=== PATIENT | female | born 1990 | race Caucasian/White ===

== ENCOUNTER 2016-09-03 06:51 | Inpatient (IN) | payer OTHER ==
[~2016-09-03] VITALS: Ht 152.4 cm; Wt 68.5 kg
[2016-09-03 07:25] LABS: HCT 39.1 % (37.0-47.0); HGB 12.9 g/dl (12.5-16.0); MCH 29.9 pg (25.0-31.0); MCV 90.5 fL (78.0-100.0); MPV 12.1 fL (6.0-9.5); RBC 4.32 M/uL (4.20-5.40); RDW 16.7 % (11.5-14.0); WBC 8.5 K/uL (4.0-10.5)
[2016-09-03 11:17] LABS: BILIRUBIN NEGATIVE (NEGATIVE); BLOOD NEGATIVE Ery/uL (NEGATIVE); CLARITY CLEAR (CLEAR); COLOR YELLOW (YELLOW); GLUCOSE (U) NORMAL (NORMAL); KETONE (U) NEGATIVE (NEGATIVE); LEUKOCYTES NEGATIVE Leu/uL (NEGATIVE); NITRITE NEGATIVE (NEGATIVE); PROTEIN NEGATIVE (NEGATIVE); SPECIFIC GRAVITY 1.015 (1.001-1.030); UROBILINOGEN 0.2 mg/dL (0.2-1.0)
[2016-09-04 05:44] LABS: HCT 33.4 % (37.0-47.0); HGB 10.9 g/dl (12.5-16.0); MCH 30.2 pg (25.0-31.0); MCHC 32.6 g/dL (32.0-36.0); MCV 92.5 fL (78.0-100.0); MPV 12.1 fL (6.0-9.5); RBC 3.61 M/uL (4.20-5.40); RDW 16.9 % (11.5-14.0)
== END 2016-09-05 11:55 | disposition home or self-care (01) | DRG 765 ==
LOC: FOB 06:51 → FMS 08:00 → FOB 09-05 11:55
PROVIDERS: ADMIT Obstetrics & Gynecology
PROC: 10D00Z1 Extraction of Products of Conception, Low, Open Approach (ICD-10-PCS; principal; 2016-09-03 09:00)
DX: O34.211 Maternal care for low transverse scar from previous cesarean delivery (principal); D62 Acute posthemorrhagic anemia; N85.8 Other specified noninflammatory disorders of uterus; Z3A.39 39 weeks gestation of pregnancy; Z37.0 Single live birth; O40.3XX0 Polyhydramnios, third trimester, not applicable or unspecified; F41.8 Other specified anxiety disorders; O99.824 Streptococcus B carrier state complicating childbirth; O09.33 Supervision of pregnancy with insufficient antenatal care, third trimester; Z87.09 Personal history of other diseases of the respiratory system
CPT/HCPCS: 36415; 81003; J0690; J1885